=== PATIENT | female | born 1975 | race Hispanic/Latino ===

== ENCOUNTER 2022-08-01 00:10 | Emergency (ER) | payer OTHER ==
[~2022-08-01] VITALS: Ht 167.6 cm; Wt 72.6 kg
[2022-08-01] MEDS ORDERED: MORPHINE 4 MG SYG IVP ONE (00:30)
[2022-08-01] MEDS ORDERED: MAG/ALUM/SIMETH 30 ML UDCUP PO ONE (00:30)
[2022-08-01] MEDS ORDERED: ONDANSETRON 4MG INJ IV ONE (00:30)
[2022-08-01] MEDS ORDERED: PANTOPRAZOLE 40 MG/VIAL IV ONE (00:30)
[2022-08-01] MEDS ORDERED: LIDOCAINE HCL 2% VISCOUS 15 ML UDCUP PO ONE (00:30)
[2022-08-01] MEDS ORDERED: LACTATED RINGERS 1000ML 1,000 ML IV ONE (00:30)
[2022-08-01] MEDS ORDERED: DICYCLOMINE HCL 10 MG/5 ML ML PO ONE (00:30)
[2022-08-01 00:37] VITALS: BP 125/71
[2022-08-01] MEDS ORDERED: ACETAMINOPHEN 500 MG TABLET ONE (00:37)
[2022-08-01 00:42] LABS: BASOPHILS % (AUTO) 0.3 % (0.0-5.0); EOSINOPHILS % (AUTO) 1.2 % (0.0-8.0); HEMATOCRIT 30.9 % (36-48); LYMPHOCYTES % (AUTO) 11.4 % (21.0-51.0); MEAN CORPUSCULAR HEMOGLOBIN 18.7 pg (27.0-33.0); MEAN CORPUSCULAR HGB CONC 28.2 g/dL (32.0-36.0); MEAN CORPUSCULAR VOLUME 66.5 fL (79-99); MONOCYTES % (AUTO) 7.7 % (3.0-13.0); NEUTROPHILS % (AUTO) 78.6 % (40.0-77.0); PLATELET COUNT (AUTO) 357 K/uL (130-400); RED BLOOD CELL COUNT(AUTO) 4.65 MIL/uL (4.00-5.50); RED CELL DISTRIBUTION WIDTH 19.6 % (11.0-15.5); WHITE BLOOD COUNT (AUTO) 14.8 K/uL (4.8-10.8)
[2022-08-01 00:58] LABS: CREATININE 0.7 mg/dL (0.5-1.5); POTASSIUM 3.3 mmol/L (3.5-5.1)
[2022-08-01] MEDS ORDERED: ACETAMINOPHEN 500 MG TABLET PO ONE (01:00)
[2022-08-01 01:02] LABS: ALBUMIN 3.5 g/dL (3.5-5.0); TOTAL PROTEIN, SERUM 7.5 g/dL (6.0-8.3)
[2022-08-01] MEDS ORDERED: IOHEXOL 350 MG/ML 100ML INFUS..BTL IV ONE (01:13)
[2022-08-01] MEDS ORDERED: ZOSYN 3.375GM +NS 50ML IVPB SCH (02:30)
[2022-08-01 03:14] LABS: APPEARANCE,URINE CLEAR (CLEAR); BILIRUBIN,URINE NEGATIVE (NEGATIVE); COLOR,URINE COLORLESS (YELLOW); GLUCOSE, URINE (UA) >=1000 mg/dL (NEGATIVE); KETONES,URINE NEGATIVE (NEGATIVE); LEUKOCYTE ESTERASE ,URINE NEGATIVE Leu/uL (NEGATIVE); NITRATE,URINE NEGATIVE (NEGATIVE); OCCULT BLOOD,URINE NEGATIVE (NEGATIVE); PH,URINE 6.5 (5.0-8.0); PROTEIN,URINE NEGATIVE (NEGATIVE); RBC,URINE 0-1 /HPF (0-1); SQUAMOUS EPITHELIAL CELL,UR RARE /HPF (0-2); UROBILINOGEN,URINE 0.2 mg/dL (0.2-1.0)
[2022-08-01] MEDS ORDERED: IBUP-2077 PO (03:21)
[2022-08-01] MEDS ORDERED: AZIT500T2 PO (03:21)
[2022-08-02] MEDS ORDERED: 0.9%NACL 1000ML 1,000 ML IV SCH (10:00)
[2022-08-02] MEDS ORDERED: LACTULOSE 20 GM/30 ML UDCUP PO SCH (13:00)
== END 2022-08-01 03:55 | disposition home or self-care (01) ==
LOC: EDH 00:10
DX: R10.13 Epigastric pain (principal); R50.9 Fever, unspecified; E11.9 Type 2 diabetes mellitus without complications; Z20.822 Contact with and (suspected) exposure to COVID-19; Z88.8 Allergy status to other drugs, medicaments and biological substances
CPT/HCPCS: 99285; 74177; 96365; 96375; 71045; 87635; 96361; 80053; 84702; 83690; 85025; 87040 ×2; 87804 ×2; 83605; 81001; 36415; C9803; J7120; J2405; J2270; J2543; C9113; Q9967